=== PATIENT | male | born 1960 | race Caucasian/White ===

== ENCOUNTER → 2017-04-10 | Outpatient (REF) ==
--- NOTE | 2017-04-11 02:25 | REP ---
Clinical: Pain and disability. Technique: AP, lateral, coned-down views of the lumbosacral spine. Comparison: None. Findings: Alignment and lordosis is maintained, and there is no evidence for acute fracture / compression injury or subluxation. Moderate to advanced multilevel degenerative changes are appreciated predominantly involving the L5-S1 and L4-L5 levels. Findings include anterior spurring/osteophyte formation, endplate sclerosis, disc space narrowing and hypertrophic facet changes. Impression: Moderate to advanced multilevel degenerative changes primarily involving the L4-5 and L5-S1 levels. Signed by Wilver Navas MD 04/11/2017 02:16 A
== END ==
LOC: M SMT 13:17
PROVIDERS: ATTEND Internal Medicine
DX: M51.36 Other intervertebral disc degeneration, lumbar region (principal)